=== PATIENT | female | born 1960 | race Two or more races ===

== ENCOUNTER → 2024-07-14 | Outpatient (CLI) | payer BC, SELFPAY ==
[2024-07-14 08:46] LABS: Basophils % (Auto) 1 % (0-2.5); Eosinophils # (Auto) 0.2 Thou/mm3 (0.0-0.5); Eosinophils % (Auto) 4 % (0-10); Hematocrit 42.6 % (36.0-46.0); Hemoglobin 14.7 g/dL (12.0-16.0); Immature Granulocytes % (Auto) 0 % (0-0); Immature Granulocytes Auto 0.02 Thou/mm3 (0.00-0.00); Lymphocytes # (Auto) 2.7 Thou/mm3 (1.0-4.8); Lymphocytes % (Auto) 43 % (10-50); Mean Corpuscular HGB Conc 34.5 g/dl (31.0-37.0); Mean Corpuscular Hemoglobin 30.3 pg (25.0-35.0); Mean Corpuscular Volume 88 fL (80-100); Monocytes # (Auto) 0.5 Thou/mm3 (0.0-0.8); Monocytes % (Auto) 7 % (0-12); Neutrophils # (Auto) 2.9 Thou/mm3 (1.8-7.7); Neutrophils % (Auto) 45 % (37-80); Nucleated Red Blood Cell % 0 /100 WBC (0); Platelet Count 217 Thou/mm3 (140-440); RDW Standard Deviation 41.6 fL (36.4-46.3); Red Blood Count 4.85 Miln/mm3 (4.00-5.20); White Blood Count 6.3 Thou/mm3 (3.6-11.0)
[2024-07-14 08:51] LABS: Alanine Aminotransferase 24 U/L (10-49); Albumin, Serum 4.7 gm/dL (3.4-4.8); Albumin/Globulin Ratio 1.6 (1.2-2.2); Alkaline Phosphatase 79 U/L (46-116); Anion Gap 10 (7-16); Aspartate Amino Transferase 20 U/L (0-34); BUN/Creatinine Ratio 20 Ratio (12-20); Bilirubin,Total 0.6 mg/dL (0.3-1.2); Blood Urea Nitrogen 14 mg/dL (9-23); Calcium 9.6 mg/dL (8.3-10.6); Calcium (Corrected) 9.6 mg/dL (8.5-10.1); Carbon Dioxide 25.1 mMol/L (20.0-31.0); Cardiac Risk Estimate 3.4 RATIO (3.7-5.6); Chloride 105 mMol/L (98-107); Cholesterol 195 mg/dL (132-200); Creatinine (Component) 0.7 mg/dL (0.6-1.3); Glucose 104 mg/dL (74-106); HDL Cholesterol 57 mg/dL (40-60); LDL Cholesterol,Calculated 111 mg/dL (0-130); Osmolality,Calculated 279 (275-295); Potassium 3.9 mMol/L (3.4-5.1); Sodium 140 mMol/L (136-145); Total Protein 7.7 gm/dL (5.7-8.2); Triglycerides 135 mg/dL (30-150); Uric Acid 6.2 mg/dL (3.1-7.8); eGFR > 60 See Note
[2024-07-14 09:00] LABS: Vitamin B12 440 pg/mL (211-911); Vitamin D 25 Hydroxy Total 19.3 ng/mL (7.3-40.2)
[2024-07-14 09:18] LABS: Glucose Estimated Average 120 mg/dL (80-131); Hemoglobin A1C 5.8 % Hgb (4.8-6.0)
[2024-07-14 09:20] LABS: Collection Type, Urine Clean Catch; RBC,Urine 0 /hpf (0-3)
[2024-07-14 09:52] LABS: Bacteria,Urine 2+; Bilirubin,Urine Negative (Negative); Blood,Urine Trace (Negative); Clarity,Urine Turbid (Clear/Hazy); Color,Urine Yellow (Lt Yel-Yel); Glucose, Urine Negative (Negative); Ketones,Urine Negative (Negative); Leukocyte Esterase,Urine Positive (Negative); Nitrite,Urine Positive (Negative); Protein,Urine 1+ (Neg - Trace); Renal Epithelial Cells,Urine 6 /hpf (0-5); Specific Gravity,Urine 1.026 (1.001-1.035); Squamous Epithelial Cell,Urine 63 /hpf (0-5); Urobilinogen,Urine Negative mg/dL (0.0-1.0); WBC,Urine 127 /hpf (0-5)
== END | disposition home or self-care (01) ==
LOC: COPL 07:36
PROVIDERS: PCP Internal Medicine; Referring Provider Internal Medicine; Visit Provider Internal Medicine
DX: Z00.00 Encounter for general adult medical examination without abnormal findings (principal)
CPT/HCPCS: 36415; 80053; 80061; 81001; 82306; 82607; 83036; 84443; 84550; 85025

== ENCOUNTER → 2024-07-15 | Outpatient (CLI) | payer BC, SELFPAY ==
--- NOTE | 2024-07-15 09:15 | XR_ITS ---
Examination: Screening digital mammography, bilateral Computer aided detection 3-D breast Tomosynthesis, bilateral Date and time of exam: July 15, 2024 0906 hrs. Compared to mammograms dating to January 24, 2011 Indication: Screening Technique: Nonmagnified MLO, CC views of the breasts to been obtained, reconstructed from 3-D Tomosynthesis images. R2 computer aided detection program utilized for evaluation of suspicious masses and/or abnormal calcifications. 3-D Tomosynthesis images obtained. Findings: Scattered areas of fibroglandular density. Intramammary lymph node outer right breast Benign calcifications. No interval suspicious masses Impression: BI-RADS category II: Benign Findings. Recommend 1 year follow-up mammogram.
--- NOTE | 2024-07-15 10:40 | XR_ITS ---
Examination: Bone densitometry Date and time of exam:July 15, 2024 0933 hours INDICATIONS: Menopause age 50, family history, mother osteoporosis with hip fracture, personal history osteopenia Technique: Lumbar spine and hip total bone mineralization values of an calculated. Peak reference and age match control results have been displayed. Findings: Lumbar spine total bone mineralization is0.840 gm/cm2. This is 1.9 standard deviations below peak reference. This is 0.2 standard deviations below age-matched controls. Hip total bone mineralization is 0.878 gm/cm2 This is 0.5 standard deviations below peak reference. This is 0.6 standard deviations above age-matched controls Impression: There is osteopenia based on lumbar spine measurements. There is normal mineralization based on hip measurements Lumbar mineralization is decreased 2.7% compared with June 05, 2015 Hip mineralization is increased 0.7% compared with June 05, 2015
== END | disposition home or self-care (01) ==
LOC: CDIM 08:56
PROVIDERS: PCP Internal Medicine; Referring Provider Internal Medicine; Visit Provider Internal Medicine
DX: Z12.31 Encounter for screening mammogram for malignant neoplasm of breast (principal); R92.323 Mammographic fibroglandular density, bilateral breasts; R92.1 Mammographic calcification found on diagnostic imaging of breast; M85.88 Other specified disorders of bone density and structure, other site
CPT/HCPCS: 77063; 77067; 77080

== ENCOUNTER → 2025-04-18 | Outpatient (CLI) | payer MEDICARE, SELFPAY ==
--- NOTE | 2025-04-18 | XR_ITS ---
Examination: Knee bilateral, 6 views Technique: Knee AP, lateral, oblique each knee total 6 views Date and time of exam: April 18, 2025, 1208 hours INDICATIONS: Bilateral knee pain beginning 1 month ago. FINDINGS: Significant osteopenia Mild to moderate bilateral tricompartment osteoarthritis most prominent involving medial patellofemoral joints No fractures IMPRESSION: Mild to moderate bilateral tricompartment osteoarthritis
== END | disposition home or self-care (01) ==
PROVIDERS: PCP Internal Medicine; Referring Provider Internal Medicine; Visit Provider Internal Medicine
DX: M17.0 Bilateral primary osteoarthritis of knee (principal)
CPT/HCPCS: 73562

== ENCOUNTER 2025-06-08 08:50 | Outpatient (AMB) | payer MEDICARE, SELFPAY ==
--- NOTE | 2025-06-08 08:58 | ORTHONT_ITS ---
Vital signs 06/08/25 08:59 Height 1.73 m Height Method Stated Weight 103.986 kg Weight Measurement Method Standing Scale BMI 34.8 BP 134/74 H Blood Pressure Source Automatic Cuff Blood Pressure Location Left Upper Arm Position Sitting Respiration 18 Pulse 74 Pulse Source Monitor Temp 97.2 F Temp Source Temporal Artery Scan Pulse Oximetry (%) 93 L Oxygen Delivery Method Room Air Med/Allergies Allergies & Medications Allergies No Known Allergies Allergy (Verified 06/08/25 08:59) Medication Reconciliation celecoxib 50 mg capsule 50 mg PO BID 06/08/25 [History Confirmed 06/08/25] ibuprofen 400 mg tablet 400 mg PO Q8H 06/08/25 [History Confirmed 06/08/25] meloxicam 7.5 mg tablet 7.5 mg PO QDAY #45 tabs 06/08/25 [Rx] Exam Exam Patient is in no acute distress and is cooperative with the examination today. Breathing is nonlabored. Patient has a normal mood and affect. Bilateral extremities were evaluated and demonstrates sensation intact to light touch. Palpable pedal pulses are present. No significant edema is present. Bilateral hips were examined. The patient has no pain with log roll of the hips. Internal rotation to 30 degrees and external rotation to 30 degrees is painless. Negative FADIR. Right knee was examined today. The right knee is in reasonable alignment. Range of motion from 0-120 degrees. Knee is stable to varus and valgus as well as AP translation with <5mm. Patient has a negative McMurrays. There is no pain with patellofemoral compression and no crepitus noted. The knee is nontender to pal pation. Left knee was examined today. The left knee is in valgus alignment. Range of motion from 0-115 degrees. Knee is stable to varus and valgus as well as AP translation with <5mm. Patient has a negative McMurrays. There is no pain with patellofemoral compression and no crepitus noted. The knee is tender to palpation laterally Assessment and Plan Problem List (1) Arthritis of left knee: Status: Acute Plan: ASSESSMENT AND PLAN 1. Bilateral knee pain: The patient reports bilateral knee pain for a few months, worsening over the last 3 months, with the left knee being more affected than the right. The pain is described as constant, sharp, burning, and aching, primarily on the anterior side of the knee, with stiffness and pain at night and during activities such as walking up and down stairs. She has tried ibuprofen, Celebrex, and turmeric supplements, which have provided some relief but not enough. Physical examination reveals more swelling in the left knee. The patient has moderate to severe arthritis, suspected to be more severe than previous x-rays indicated due to non-weightbearing positioning during the initial x-ray. A standing x-ray will be ordered today to assess the severity of the arthritis. A cortisone injection will be administered in the left knee to alleviate the pain. The potential side effects of the cortisone injection, including a rare risk of infection, were discussed. A prescription for meloxicam once daily will be sent to the pharmacy as an alternative to Celebrex. The patient was advised to continue using turmeric supplements and to take the prescribed medication at night if it bothers her more during that time. The benefits of anti-inflammatory medications and the importance of monitoring for any adverse effects were discussed. Office Procedures GNS Level of Care Nursing/Assessment Patient Status: Initial/New Patient Nursing Assessment/Reassesment: Medication Reconciliation, Update PMH in EMR and Vital Signs Coordination of Care: Complex Care and Chronic Disease 1-5, Education Complex Pt/Fam, Consent,records obtained, informed consent, 1 Ins Authorization, Lab and Imaging orders, Results/Orders obtained and Staff clarify orders New Patient Charge New Patient Point Assignment: 1124 New Patient Point Charge: [employer] Level 4 ([id number]) Surgical Proc/IM SQ injection Minor Surgical Procedure: Yes (LEFT KNEE INJECTION) Medication Given Medication Given Medication Given: Yes Documented Dose Given: 1 Route: Infiitration Medication Given Medication Given Medication Given: Yes Documented Dose Given: 4 Route: Infiitration Office Meds methylprednisolone acetate 80 mg/mL suspension for injection Performing Provider: Troy Ceja MD Performing Location: [facility] Administered by: Troy Ceja MD on 06/08/25 09:34 Dose Route Admin Location Dispensed Lot Number Expiration Date Pack age [facility] [employer] 80 mg intra-articular 1 mL [id number] 02/25/27 [address]-7 [id number] [employer] ropivacaine (PF) 2 mg/mL (0.2 %) injection solution Performing Provider: Troy Ceja MD Performing Location: [facility] Administered by: Troy Ceja MD on 06/08/25 09:34 2 Dose Route Admin Location Dispensed Lot Number Expiration Date Pack age [employer] 20 mL Infiltration 20 mL [id number] 07/28/27 98833-761-03 [id number] [facility] Intake Visit Data Collection New Patient or Established: New Patient (never been to [facility]) Reason for Visit:: BILATERAL KNEE PAIN Seen by Clinical Staff ONLY (RN/MA): No PCP or OBGYN visit in last 3 months: Yes Hx Now: No Do You Feel Safe at Home: Yes Authorities Contacted: N/A Questionairres Past Medical History Past Medical History Have you ever been diagnosed with any of the following: Neurological Problems Cerebrovascular Accident (CVA): No Transient Ischemic Attacks (TIA): No Dementia: No Alzheimer's Disease: No Parkinson's Disease: No Brain Tumor: No Meningitis: No Seizures: No Epilepsy: No Multiple Sclerosis: No Cerebral Palsy: No Amyotrophic Lateral Sclerosis (ALS/Bernice Gehrig's): No Guillain-[place] Syndrome: No Spina Bifida: No Paralysis: No Peripheral Neuropathy: No Morales's Palsy: No Subdural Hematoma: No Migraine: No Head Trauma: No Spinal Cord Injury: No Traumatic Brain Injury: No Cardiology Problems Myocardial Infarction: No Cardiac Arrhythmia: No Atrial Fibrillation: No Angina: No Heart Murmur: No Coronary Artery Disease: No Atherosclerotic Heart Disease: No Peripheral Vascular Disease: No Hypercholesterolemia: No Aneurysm: No Congestive Heart Failure: No Congenital Heart Disease: No Valvular Heart Disease: No Rheumatic Fever: No Cardiomyopathy: No Edema: No Pericarditis: No Cellulitis: No Deep Vein Thrombosis: No Hypertension: No Hypotension: No Varicose Veins: No Respiratory Problems Chronic Obstructive Pulmonary Disease (COPD): No Asthma: No Bronchitis: No Emphysema: No Pneumonia: No Pulmonary Fibrosis: No Tuberculosis: No Pulmonary Embolism: No Pulmonary Edema: No Sleep Apnea: No CPAP Dependent: No Respiratory Aspiration: No Dyspnea: No Orthopnea: No Hx Cough: No Cough: No Wheezing: No Chest Deformities: No Smoking: No Smoking Cessation Counseling: No Smoking Exposure: No Tobacco Use: No Clubbing: No Exposure to Respiratory Irritants: No Intubation: No Stomache/Intestinal Problems Liver Cancer: No Hepatitis: No Cirrhosis: No Pancreatic Cancer: No Pancreatitis: No Celiac Disease: No Gall Bladder Disease: No Gastrointestinal Bleed: No Esophageal Varices: No Bryant's Esophagus: No Colitis: No Ulcerative Colitis: No Diverticulitis: No Diverticulosis: No Ulcer: No Colorectal Cancer: No Irritable Bowel: No Crohn's Disease: No Obstructive Bowel: No Hiatal Hernia: No Hemorrhoids: No Gastroesophageal Reflux Disease: No Polyps: No Obesity: No Genital/Urinary Problems Chronic Kidney Disease: No Renal Disease: No Kidney Stones: No Polycystic Kidney Disease: No Neurogenic Bladder: No Inguinal Hernia: No Dialysis: No Reproductive Problems Breast Cancer: No Endometriosis: No Fibroids: No Genital Herpes: No Gonorrhea: No Pelvic Inflammatory Disease: No Polycystic Ovarian Syndrome: No Previous Pregnancies: No Syphilis: No Uterine Prolapse: No Musculoskeletal Problems Muscular Dystrophy: No Myasthenia Gravis: No Marfan's Syndrome: No Bone Cancer: No Arthritis: No Rheumatoid Arthritis: No Osteoporosis: No Degenerative Disk Disease: No Gout: No Scoliosis: No Carpal Tunnel Syndrome: No Fibromyalgia: No Fractures: No Degenerative Joint Disease: No Osteomyelitis: No Poliovirus: No Head,Eye,Nose,Throat Problems Cataracts: No Glaucoma: No Blind: No Retinal Detachment: No Macular Degeneration: No Chronic Ear Infections: No Deafness: No Eye Prosthesis: No Endocrine Problems Diabetes Mellitus Type 1: No Diabetes Mellitus Type 2: No Hypoglycemia: No [place]'s Syndrome: No [place]'s Disease: No Hyperthyroidism: No Hypothyroidism: No Thyroid Cancer: No Parathyroid Disease: No Pituitary Disease: No Systemic Lupus Erythematosus: No Syndrome of Inappropriate Antidiuretic Hormone: No Adrenal Disease: No Graves' Disease: No Blood Problems Anemia: No Leukemia: No Hemophilia: No Thalassemia: No Sickle Cell Disease: No Clotting Problems: No Psychologic Problems Schizophrenia: No Recreational Drug Use: No Bipolar Disorder: No Depression: No Anxiety: No Behavior Problems: No Self-Mutilation: No Attention Deficit Disorder: No Attention Deficit Hyperactivity Disorder: No Depression: No Post Traumatic Stress Disorder: No Eating Disorder: No Other Problems Hospitalization: No Autoimmune Disease: No Down Syndrome: No Autism: No Developmental Delay: No Cosmetic Surgery: No Shingles: No Falls: No Blood Transfusions: No Blood Transfusion Reaction: No Anesthesia Reactions: No Organ Transplant: No Chemotherapy: No Radiation Therapy: No Hyperbaric Therapy: No MRSA: No VRSA: No Vancomycin-Resistant Enterococci: No Human Immunodeficiency Virus (HIV): No Chicken Pox: No Measles: No Mumps: No Rubella ([place] Measles): No Pertussis: No Klebsiella Pneumoniae Carbapenemase Producing Bacteria: No Clostridium Difficile: No Hepatitis A: No Hepatitis B: No Hepatitis C: No Communicable Disease: No Cancer: No Cervical Cancer: No Lung Cancer: No Ovarian Cancer: No Surgical History Angioplasty: No Appendectomy: No Bariatric Surgery: No Breast Surgery: No Cancer Surgery: No Carotid Endarterectomy: No Cholecystectomy: No Colectomy: No Colostomy: No Coronary Artery Bypass Graft: No Valve Replacement: No Herniorrhaphy: No Total Hip Replacement: No Total Knee Replacement: No Hysterectomy: No Pacemaker: No Sinus Surgery: No Splenectomy: No TAHBSO-Total Abdominal Hysterectomy: No Thyroidectomy: No Ureter Stent: No Subjective Visit Visit for: new patient and knee (BILATERAL) Immunization / Flu Flu Vaccine in the Last 12 Months: Yes Flu Vaccine Exclusion Criteria: Already Received History of Present Illness Chief complaint: BILATERAL KNEE PAIN Date of injury / onset of symptoms: 4 MONTHS HISTORY OF PRESENT ILLNESS ITroy, have obtained verbal consent from the patient, to be recorded during this encounter which may include, but not limited to, medical history, examination, treatment plans, and relevant health information.? Patient was informed that recording will be read and reviewed by myself before inclusion in the medical chart. The patient is a 64-year-old female presenting with bilateral knee pain. She has been experiencing bilateral knee pain for several months, which has progressively worsened over the past 3 months, with the left knee being more a ffected than the right. The pain is described as constant, sharp, burning, and aching, predominantly on the anterior aspect of the knee. She also reports stiffness, nocturnal pain, and discomfort during physical activity and stair navigation. The pain is rated as an 8 out of 10 in severity. She recalls a fall on her knee approximately a year prior to her senior care, which resulted in persistent discomfort. However, this issue had resolved until recently. An x-ray was performed, revealing arthritic changes. She has not sought any other treatments apart from Celebrex and ibuprofen for pain management. She was advised to take turmeric supplements, which she reports as beneficial. She continues to ambulate despite the pain. Her current medication regimen includes a morning dose of turmeric supplement and an evening dose of Celebrex 100 mg as needed. She also reports occasional popping sensations in her knees during ambulation. She has not undergone any injections or physical therapy. She has no medical conditions. Personal History Occupation: RETIRED [employer] provided: Yes Pain Pain level (0-10): 8 Pain duration: CONSTANT Pain location: inside (medial) and anterior Pain quality: dull, aching and burning Pain timing: night, increases with activity and stairs Associated signs & symptoms: stiffness Ambulatory data Ambulatory device: none Treatments Number of previous injections: 0 Improvement with previous injections: No Number of Physical Therapy sessions: 0 Improvement with PT: No Improvement with NSAIDS: yes (CELECOXIB) Review of Systems Review of Systems: All systems negative unless otherwise noted in HPI.
[2025-06-08 08:59] VITALS: BP 134/74; PULSE 74; RESP 18; TEMP 36.2; O2SAT 93; BMI 34.8
--- NOTE | 2025-06-08 09:20 | XR_ITS ---
EXAMINATION: AP bilateral hip single view Left knee PA lateral axial 3 views TECHNIQUE: AP standing bilateral knees single view Left knee PA standing flexion, standing lateral, axial left knee 3 views total 4 views Date and time: June 08, 2025, 0945 hours INDICATIONS: Left knee pain 6 months. FINDINGS: Severe narrowing medial joint space left knee Significant osteoarthritis lateral patellofemoral joints Moderate narrowing medial joint space right knee IMPRESSION: Advanced osteoarthritis tricompartment left knee including severe narrowing medial joint space
== END 2025-06-08 09:27 | disposition home or self-care (01) ==
LOC: HODSRG 08:50
PROVIDERS: PCP Internal Medicine; Referring Provider Internal Medicine; Supervising Provider Orthopaedic Surgery Adult Reconstructive Orthopaedic Surgery; Visit Provider Orthopaedic Surgery Adult Reconstructive Orthopaedic Surgery
DX: M25.562 Pain in left knee (principal); M25.561 Pain in right knee; M17.12 Unilateral primary osteoarthritis, left knee
CPT/HCPCS: 20610; 73564; 99204; J1010; J2795; G0463